=== PATIENT | female | born 1930 | race Caucasian/White ===

== ENCOUNTER 2018-11-13 10:57 | Inpatient (IN) | payer MEDICARE ==
--- NOTE | 2018-11-13 11:32 | RAD ---
Exam: Chest one view HISTORY:Chest pain Comparison: None FINDINGS: Lungs: No masses or consolidation. Left cardiac pacing device is in place, from subclavian approach. Cardiac silhouette: Normal size Pulmonary vessels: Normal Pleural Spaces: Clear Pneumothorax: None Osseous abnormalities: None of acuity. IMPRESSION: No focal consolidation.
[2018-11-13] MEDS ORDERED: Nitroglycerin 2% Ointment 1 INCH/1 GM Packet ONE (11:45)
[2018-11-13] MEDS ORDERED: Aspirin Chewable 81 MG TAB ONE (11:45)
[2018-11-13 11:54] LABS: #Basophils 0.1 thou/uL (0.0-0.2); #Lymphocytes 1.3 thou/uL (1.20-3.40); #Monocytes 0.6 thou/uL (0.11-0.59); #Neutrophils 6.3 thou/uL (1.40-6.50); %Basophils 0.8 % (0.0-1.0); %Eosinophils 0.3 % (0.0-10.0); %Lymphocytes 15.7 % (21.0-51.0); %Monocytes 6.9 % (0.0-10.0); %Neutrophils 76.3 % (42.0-75.0); Hemoglobin 17.7 g/dL (12.0-16.0); Mean Corpuscular Volume 91.1 fL (78.0-98.0); Mean Platelet Volume 7.4 fL (7.4-10.4); Platelet Count 163 thou/uL (130-400); RBC Distribution Width 12.1 % (11.5-14.5); Red Blood Cell (RBC) Count 5.73 mill/uL (4.20-5.40); White Blood Cell (WBC) Count 8.3 thou/uL (4.8-10.8)
[2018-11-13 12:05] LABS: ALT (SGPT) 21 U/L (8-55); AST (SGOT) 20 U/L (5-34); Alkaline Phosphatase 82 U/L (40-150); Anion Gap 22 mmol/L (10-20); BUN (Urea Nitrogen) 42 mg/dL (9.8-20.1); Bilirubin, Total 1.4 mg/dL (0.2-1.2); CK (CPK) 43 U/L (29-168); Calc. Creatinine Clearance 0 mL/min (70-130); Calcium 9.5 mg/dL (7.8-10.44); Carbon Dioxide 22 mmol/L (23-31); Chloride 96 mmol/L (98-107); Estimated GFR-MDRD 31; Globulin 3.3 g/dL (2.4-3.5); Glucose 405 mg/dL (83-110); Lipase 18 U/L (8-78); Protein, Total 7.3 g/dL (6.0-8.3); Sodium 136 mmol/L (136-145)
[2018-11-13 12:24] LABS: CKMB 2.8 ng/mL (0-6.6)
[2018-11-13] MEDS ORDERED: Insulin Regular 300 UNITS/3 ML VIAL ONE (12:37)
[2018-11-13 15:40] VITALS: BMI 21.7
[2018-11-13] MEDS ORDERED: Dextrose 5% in Water 1,000 ML IV PRN (16:10)
[2018-11-13] MEDS ORDERED: Dextrose 50% Abboject 50 ML SYRINGE SLOW IVP PRN (16:10)
[2018-11-13] MEDS ORDERED: Ondansetron ODT 4 MG TAB PO PRN (16:11)
[2018-11-13] MEDS ORDERED: Labetalol HCl 100 MG/20 ML VIAL SLOW IVP PRN (16:11)
[2018-11-13] MEDS ORDERED: diphenhydrAMINE 25 MG CAP PO PRN (16:11)
[2018-11-13] MEDS ORDERED: Acetaminophen 500 MG TAB PO PRN (16:11)
[2018-11-13] MEDS ORDERED: Ondansetron PF 4 MG/2 ML Vial IVP PRN (16:11)
[2018-11-13] MEDS ORDERED: hydrALAZINE 20 MG/ML VIAL SLOW IVP PRN (16:11)
[2018-11-13] MEDS ORDERED: Sodium Chloride 0.9% 1,000 ML IV SCH (16:15)
[2018-11-13 17:01] LABS: Troponin I 0.026 ng/mL (< 0.028)
--- NOTE | 2018-11-13 17:50 | HP ---
PRIMARY CARE PHYSICIAN: Dr. Arthur Braxton. CHIEF COMPLAINT: Chest pain, nausea, and vomiting. HISTORY OF PRESENT ILLNESS: Ms. Joseph is a pleasantly demented 88-year-old female with past medical history significant for type 2 diabetes mellitus, hypertension, paroxysmal atrial fibrillation, and history of dual-chamber pacemaker implantation, who presented with the above complaints. The patient can provide no history, and her son is no longer at the bedside, so information is obtained from medical records and staff. According to records, the patient has had some nausea and vomiting for the past couple of days. Today, she described some chest discomfort and pressure along with her nausea and vomiting. Her son brought her to the emergency department for further workup and treatment. On arrival, workup has included an EKG, which showed sinus rhythm along with some ST depression noted in leads I and aVL consistent with lateral ischemia. Her troponin was indeterminate at 0.034. She was fairly hypertensive when she arrived to the emergency department with a blood pressure of 199/110. She received aspirin as well as nitroglycerin paste and her blood pressure has trended down. Her second troponin was 0.026. At the time of my interview, the patient has no complaints. She is resting comfortably. She states that she feels much better than yesterday. The patient has been seen by Dr. Piedra in the past. She has no history of coronary artery disease, and no recent stress test per review of records. REVIEW OF SYSTEMS: A 12-point review of systems was performed. The patient denies any dysuria. She denies any blood in her urine or stool. She denies any fever or chills. She does report occasional dizzy spells along with frequent falling. She does try to use a cane. She states that she does not like to take medications and has not been taking her prescriptions as prescribed. PAST MEDICAL HISTORY: 1. Paroxysmal atrial fibrillation, CHADS at least 5. 2. The patient with dual-chamber pacemaker. 3. Type 2 diabetes mellitus. 4. Hyperlipidemia. 5. Advanced dementia. 6. Diabetic neuropathy. PAST SURGICAL HISTORY: Hysterectomy, dual-chamber pacemaker. SOCIAL HISTORY: The patient denies any alcohol use. No smoking history or illicit drug use. She lives with her son, Santy Joseph, who I have tried to reach, although phone number is not correct in our system. FAMILY HISTORY: Noncontributory. ALLERGIES: PENICILLINS, IODINE. HOME MEDICATIONS: The patient states that she has not taken any home medications recently. Notes obtained from Dr. Piedra's office revealed that her previous list of medications that were listed in October of 2017 were as follows: 1. Toviaz 4 mg tablet extended release one tablet daily. 2. Atorvastatin 40 mg q.h.s. 3. Gabapentin 300 mg tablet one capsule orally four times daily. 4. Fenofibrate 54 mg tablet one tablet daily. 5. Aspirin 81 mg daily. 6. Janumet XR mg one tablet daily. 7. Myrbetriq 25 mg extended release tablet one tablet daily. 8. Spironolactone 25 mg half tablet orally daily. 9. Ramipril 10 mg capsule daily. 10. Multaq 400 mg one tablet p.o. b.i.d. As mentioned, the patient is currently not taking any medications. PHYSICAL EXAMINATION: VITAL SIGNS: Blood pressure 166/99, pulse is 86, respirations 18, O2 saturation is 93% on room air. GENERAL: This patient is an elderly female, resting comfortably in bed. HEENT: Head is atraumatic and normocephalic. Mucous membranes are moist. NECK: Trachea is midline. No carotid bruits. No JVD. CV: S1 and S2. Regular rate and rhythm. No appreciable murmurs, rubs, or gallops. LUNGS: Regular respiratory rate and pattern. Overall, clear to auscultation bilaterally. ABDOMEN: Soft. Positive bowel sounds. EXTREMITIES: No edema. Warm, well perfused. NEUROLOGIC: Cranial nerves 2 through 12 are grossly intact. The patient is nonfocal. PSYCHIATRIC: The patient has a pleasant demeanor. She is alert and oriented to person and place, but cannot provide any significant history or remember having chest pain today. LABORATORY DATA: White blood cell count 8.3, hemoglobin 17.7, hematocrit 52.2, platelet count is 163. Sodium 136, potassium 4.0, BUN is 42, creatinine 1.58, glucose is 345, AST is 20, ALT is 21, alkaline phosphatase is 82. Troponin 0.034 and 0.026 respectively. Lipase is 18. ASSESSMENT: 1. Chest pain with associated nausea and vomiting, acute coronary syndrome ruled out. 2. Accelerated hypertension. 3. Indeterminate troponin in the setting of above. 4. Acute kidney injury, secondary to mild dehydration. 5. Noncompliance with medical treatment. 6. Uncontrolled type 2 diabetes mellitus. 7. Hyperlipidemia. 8. Advanced dementia. 9. Frequent falls. 10. patient with dual-chamber cardiac pacemaker in situ 11. Paroxysmal atrial fibrillation, currently in sinus rhythm/paced rhythm, CHADS-VASc of at least 5, likely not a candidate for anticoagulation due to frequent falls. PLAN: At this time, we will reinstate some of the patient's medications including daily aspirin as well as statin giving her diabetic status. We will provide sliding scale insulin for now. We will reinstate metformin after the patient's kidney function improves along with her GI symptoms. The patient has multiple risk factors and we will go ahead and further risk stratify this patient with nuclear stress test to be performed tomorrow. We will also interrogate her pacemaker as well. We will provide IV fluid resuscitation and continue to monitor her kidney function and electrolytes. Physical Therapy consult in the morning. Further recommendations based on findings of noninvasive testing and hospital course. GI and DVT prophylaxis. Job ID: [id number] MTDD
[2018-11-13] MEDS: Carvedilol 3.125 MG TAB PO SCH (18:10)
[2018-11-13] MEDS: Sodium Chloride 0.9% 1,000 ML IV SCH (18:11)
[2018-11-13 19:54] LABS: Troponin I 0.025 ng/mL (< 0.028)
[2018-11-13] MEDS: Enoxaparin Sodium 30 MG/0.3 ML SYRINGE SC SCH (20:39)
[2018-11-13] MEDS: Atorvastatin Calcium 20 MG TAB PO SCH (20:39)
[2018-11-13] MEDS: HumaLOG 300 UNITS/3 ML VIAL SC PRN (21:38)
[2018-11-14] MEDS: Sodium Chloride 0.9% 1,000 ML IV SCH ×4 (00:55→18:18)
[2018-11-14 04:42] LABS: #Basophils 0.1 thou/uL (0.0-0.2); #Eosinphils 0.1 thou/uL (0.0-0.7); #Lymphocytes 2.9 thou/uL (1.20-3.40); #Monocytes 0.7 thou/uL (0.11-0.59); #Neutrophils 4.7 thou/uL (1.40-6.50); %Basophils 1.1 % (0.0-1.0); %Eosinophils 1.1 % (0.0-10.0); %Monocytes 8.4 % (0.0-10.0); %Neutrophils 55.5 % (42.0-75.0); Hemoglobin 14.5 g/dL (12.0-16.0); Mean Corpuscular HGB CONC 34.8 g/dL (32.0-36.0); Mean Corpuscular Hemoglobin 32.1 pg (27.0-31.0); Mean Corpuscular Volume 92.1 fL (78.0-98.0); Mean Platelet Volume 7.5 fL (7.4-10.4); Platelet Count 147 thou/uL (130-400); RBC Distribution Width 11.6 % (11.5-14.5); Red Blood Cell (RBC) Count 4.52 mill/uL (4.20-5.40); White Blood Cell (WBC) Count 8.4 thou/uL (4.8-10.8)
[2018-11-14 04:54] LABS: Anion Gap 11 mmol/L (10-20); BUN (Urea Nitrogen) 37 mg/dL (9.8-20.1); Calc. Creatinine Clearance 30 mL/min (70-130); Calcium 8.4 mg/dL (7.8-10.44); Carbon Dioxide 26 mmol/L (23-31); Cardiac Risk 5.7 (Less than 4.5); Chloride 100 mmol/L (98-107); Cholesterol 166 mg/dl (< 200 Desired); Estimated GFR-MDRD 49; Glucose 174 mg/dL (83-110); HDL Cholesterol 29 mg/dL (>60 Neg Risk); LDL Cholesterol, Calculated 80 mg/dL; Potassium 3.2 mmol/L (3.5-5.1); Sodium 134 mmol/L (136-145); Triglycerides 287 mg/dL (Less than 150)
[2018-11-14 07:24] LABS: Bacteria/HPF 4+ HPF (None Seen); Bilirubin Negative (Negative); Blood, Urine Trace (Negative); Clarity Turbid (Clear); Glucose, Urine (Dipstick) 200 mg/dL (Negative); Leukocyte 500 Leu/uL (Negative); Nitrite 2+ (Negative); Protein, Urine (Dipstick) 20 mg/dL (Neg-Trace); Transitional Epithelial 0-3 HPF (None Seen); Urobilinogen Normal mg/dL (Less than 2); WBC/HPF Greater than 50 HPF (0-3)
[2018-11-14] MEDS ORDERED: Potassium Chloride 40 MEQ in Sodium Chloride 0.9% 250 ML 250 ML IVPB SCH (08:30)
[2018-11-14] MEDS: Carvedilol 3.125 MG TAB PO SCH ×3 (09:17→17:58)
[2018-11-14] MEDS: Aspirin 81 mg Enteric Coated Tablet PO SCH ×2 (09:17→12:08)
--- NOTE | 2018-11-14 11:52 | NM ---
CARDIAC SPECT: CLINICAL HISTORY: 88-year-old female with chest pain, hypertension, diabetes, dyslipidemia, and atrial fibrillation. TECHNIQUE: A myocardial perfusion scan was performed using the single isotope one day protocol with technetium-9 9m sestamibi. 10 mCi were injected intravenously for the rest exam followed by 29 mCi for the stress exam. Pharmacologic stress with Adenosine was monitored and interpreted by Etelvina Duque NP. FINDINGS: Homogeneous tracer distribution is seen in the myocardial segments on stress and rest images without fixed or reversible defects. GATED SPECT LVEF: 84%. WALL MOTION EXAM: Normal. IMPRESSION: Normal myocardial perfusion scan. POS: OFF
[2018-11-14] MEDS ORDERED: ADENOSINE 60 MG/20 ML VIAL ONE (16:55)
--- NOTE | 2018-11-14 17:20 | PDOC.HOSPP ---
- Subjective Encounter Date: 11/14/18 Encounter Time: 17:18 Subjective: Patient reports no complaints except urinary frequency. Per son she has had long standing issues with UTIs and has also recently stopped taking all of her medications. She refuses to take them or holds them in her mouth. She does have underlying dementia. Per son, he agrees placement would be beneficial as recommended by PT. She has had several falls. Often falls asleep on the commode though she is able to walk to the toilet independently. Per patient she states she feels she has been on medications for too long and takes too many. She is slightly confused but able to answer some questions appropriately. No complaints at present. - Objective Vital Signs & Weight: Vital Signs (12 hours) Temp Pulse Pulse Pulse Resp BP BP 11/14/18 15:41 97.8 F 74 17 11/14/18 15:10 77 71 179/84 H 181/79 H 11/14/18 11:30 97.3 F L 77 16 BP Pulse Ox 11/14/18 15:41 161/73 H 97 11/14/18 15:10 11/14/18 11:30 197/92 H 96 Weight Weight 111 lb I&O: 11/13/18 11/14/18 11/15/18 06:59 06:59 06:59 Intake Total 1740 Output Total 150 Balance 1590 Result Diagrams: 11/14/18 04:16 11/14/18 04:16 Additional Labs: Accuchecks 11/14/18 11/13/18 11:35 21:09 POC Glucose 272 H 300 H Hospitalist ROS - Review of Systems Constitutional: denies: fever, chills, sweats, weakness, malaise, other Eyes: denies: pain, vision change, conjunctivae inflammation, eyelid inflammation, redness, other ENT: denies: ear pain, ear discharge, nose pain, nose discharge, nose congestion , mouth pain, mouth swelling, throat pain, throat swelling, other Respiratory: denies: cough, dry, shortness of breath, hemoptysis, SOB with excertion, pleuritic pain, sputum, wheezing, other Cardiovascular: denies: chest pain, palpitations, orthopnea, paroxysmal noc. dyspnea, edema, light headedness, other Gastrointestinal: denies: nausea, vomitting, abdominal pain, diarrhea, constipation, melena, hematochezia, other Genitourinary: reports: frequency. denies: dysuria, incontinence, hematuria, retention, other Musculoskeletal: denies: neck pain, shoulder pain, arm pain, back pain, hand pain, leg pain, foot pain, other Skin: denies: rash, lesions, daphne, bruising, other Neurological: denies: weakness, numbness, incoordination, change in speech, confusion, seizures, other - Medication Medications: Active Medications Generic Name Dose Route Start Last Admin Trade Name Freq PRN Reason Stop Dose Admin Aspirin 81 mg 11/14/18 09:00 11/14/18 12:08 Ecotrin PO 81 mg DAILY LEYDA Administration Atorvastatin Calcium 20 mg 11/13/18 21:00 11/13/18 20:39 Lipitor PO 20 mg HS LEYDA Administration Carvedilol 3.125 mg 11/13/18 17:00 11/14/18 12:08 Coreg PO 3.125 mg BID-WM LEYDA Administration Enoxaparin Sodium 30 mg 11/13/18 21:00 11/13/18 20:39 Lovenox SC 30 mg 2100 LEYDA Administration Sodium Chloride 1,000 mls @ 125 mls/hr 11/13/18 16:15 11/14/18 16:55 Normal Saline 0.9% IV Not Given .Q8H LEYDA Insulin Human Lispro 0 units 11/13/18 16:10 11/13/18 21:38 Humalog SC 3 units .BEDTIME SLIDING SC PRN Administration Bedtime Correctional Scale - Exam General Appearance: NAD Eye: PERRL, anicteric sclera ENT: normocephalic atraumatic, no oropharyngeal lesions, moist mucosa Neck: supple, symmetric, no lymphadenopathy Heart: RRR Respiratory: CTAB, no wheezes, no rales, no ronchi, normal chest expansion, no tachypnea Gastrointestinal: soft, non-tender, non-distended, normal bowel sounds Extremities: no cyanosis, no clubbing, no edema Skin: normal turgor, no lesions, no rashes Neurological: CN's grossly intact, normal sensation to touch Musculoskeletal: generalized weakness Psychiatric: normal affect, oriented to person Hosp A/P (1) Chest pain Code(s): R07.9 - CHEST PAIN, UNSPECIFIED Status: Resolved Plan: s/p stress test, normal without ischecmia and EF of 84%. (2) UTI (urinary tract infection) Status: Acute Plan: Start Rocephin, urine cultures pending. Previous cultures positive for e. coli and klebsiella. (3) Nausea & vomiting Code(s): R11.2 - NAUSEA WITH VOMITING, UNSPECIFIED Status: Resolved (4) Generalized weakness Code(s): R53.1 - WEAKNESS Status: Acute Plan: Seen by PT, recommended rehab vs. SNU Consult for [facility] and rehab screening placed. Potentially worse due to underlying UTI. (5) Dementia Code(s): F03.90 - UNSPECIFIED DEMENTIA WITHOUT BEHAVIORAL DISTURBANCE Status: Chronic Plan: Per son she is at baseline. (6) Diabetes mellitus Code(s): E11.9 - TYPE 2 DIABETES MELLITUS WITHOUT COMPLICATIONS Status: Chronic Plan: Resume home meds. Continue ISS and monitor glucose. (7) Hypertension Code(s): I10 - ESSENTIAL (PRIMARY) HYPERTENSION Status: Chronic Plan: Reduce IVF to 50 cc/hr Start amlodipine, has been off of lisinopril for several days. Monitor BP. (8) Hypokalemia Code(s): E87.6 - HYPOKALEMIA Status: Acute Plan: S/p replacement. Continue to monitor and replace as necessary. - Plan PT/OT, DVT proph w/SCDs Awaiting PM interrogation, to be done later today or tomorrow am. Cardiology consult if indicated (Dr. Piedra). Will add BNP and Mg+ to labs done today. Orthostatic BPs requested.
[2018-11-14] MEDS: cefTRIAXone\\ROCEPHIN 2 GM in Sodium Chloride 0.9% 100 ML IVPB SCH (17:58)
[2018-11-14] MEDS: Atorvastatin Calcium 20 MG TAB PO SCH (20:25)
[2018-11-14] MEDS: Enoxaparin Sodium 30 MG/0.3 ML SYRINGE SC SCH (20:25)
[2018-11-14] MEDS: Propafenone HCl 150 MG TAB PO SCH (20:27)
[2018-11-14] MEDS: HumaLOG 300 UNITS/3 ML VIAL SC PRN (21:29)
[2018-11-15 04:54] LABS: #Basophils 0.1 thou/uL (0.0-0.2); #Eosinphils 0.1 thou/uL (0.0-0.7); #Lymphocytes 2.1 thou/uL (1.20-3.40); #Monocytes 0.6 thou/uL (0.11-0.59); %Basophils 0.8 % (0.0-1.0); %Eosinophils 1.4 % (0.0-10.0); %Lymphocytes 30.4 % (21.0-51.0); %Monocytes 8.7 % (0.0-10.0); %Neutrophils 58.7 % (42.0-75.0); Hemoglobin 14.3 g/dL (12.0-16.0); Mean Corpuscular HGB CONC 33.8 g/dL (32.0-36.0); Mean Corpuscular Volume 91.7 fL (78.0-98.0); Mean Platelet Volume 7.9 fL (7.4-10.4); Platelet Count 132 thou/uL (130-400); RBC Distribution Width 11.6 % (11.5-14.5); Red Blood Cell (RBC) Count 4.61 mill/uL (4.20-5.40); White Blood Cell (WBC) Count 6.8 thou/uL (4.8-10.8)
[2018-11-15 05:14] LABS: Anion Gap 13 mmol/L (10-20); BUN (Urea Nitrogen) 22 mg/dL (9.8-20.1); Calc. Creatinine Clearance 35 mL/min (70-130); Calcium 8.2 mg/dL (7.8-10.44); Carbon Dioxide 24 mmol/L (23-31); Chloride 104 mmol/L (98-107); Estimated GFR-MDRD 58; Glucose 179 mg/dL (83-110); Magnesium 1.5 mg/dL (1.6-2.6); Potassium 3.4 mmol/L (3.5-5.1); Sodium 138 mmol/L (136-145)
[2018-11-15] MEDS: Carvedilol 3.125 MG TAB PO SCH (09:13)
[2018-11-15] MEDS: Propafenone HCl 150 MG TAB PO SCH (09:13)
[2018-11-15] MEDS: Aspirin 81 mg Enteric Coated Tablet PO SCH (09:13)
[2018-11-15] MEDS: Fenofibrate 48 MG TAB PO SCH (09:13)
[2018-11-15] MEDS: Amlodipine 5 MG TAB PO SCH (09:13)
[2018-11-15] MEDS: Glimepiride 1 MG TAB PO SCH (09:42)
[2018-11-15] MEDS: HumaLOG 300 UNITS/3 ML VIAL SC PRN (12:03)
--- NOTE | 2018-11-15 14:30 | CON ---
DATE OF CONSULTATION: 11/15/2018 REASON FOR CONSULTATION: Atrial arrhythmias. PRIMARY REGISTERED NURSE CARDIAC: Kenneth Piedra MD HISTORY OF PRESENT ILLNESS: Ms. Joseph is a pleasant 88-year-old white female, who comes to the hospital for nausea and vomiting. She started having this a few days back. This is associated with chest pain, so she was admitted for this. She had a pacemaker placed about 12 years ago. She had a stress test yesterday, which was normal. No ischemia with normal LV function. She has a history of paroxysmal atrial fibrillation and she was started on Multaq recently. No anticoagulation was given as she is a high fall risk as she is reluctant to use a walker. She was started on Multaq on her last visit a year ago as she had a high burden of atrial fibrillation. Interrogation during this hospital stay shows high burden of atrial arrhythmias including atrial fibrillation and atrial tachycardia. Sustain 30 to 40 seconds worse at a time minimally symptomatic, although she is somewhat demented and cannot tell me with much details if she is feeling this or not. PAST MEDICAL HISTORY: 1. Paroxysmal atrial fibrillation. 2. Dementia. 3. Sick sinus syndrome, status post dual-chamber pacemaker. 4. Type 2 diabetes. 5. Hyperlipidemia. 6. Diabetic nephropathy. PAST SURGICAL HISTORY: 1. Hysterectomy. 2. Pacemaker placement as above. SOCIAL HISTORY: No alcohol, tobacco, or drugs. Lives with her son. FAMILY HISTORY: Noncontributory. OUTPATIENT MEDICATIONS: Include: 1. Toviaz 4 mg a day. 2. Atorvastatin 40 mg at bedtime. 3. Gabapentin. 4. Fenofibrate. 5. Aspirin 81 a day. 6. Janumet. 7. Myrbetriq. 8. Spironolactone 25 mg half tablet a day. 9. Ramipril 10 mg a day. 10. Multaq 400 mg b.i.d. ALLERGIES: PENICILLINS AND IODINE. REVIEW OF SYSTEMS: A 12-point review of systems was done and was all negative unless stated in the history of present illness. PHYSICAL EXAMINATION: VITAL SIGNS: Temperature 97.5, pulse 60, respiratory rate 16, sat 97% on room air, and blood pressure 141/66. GENERAL: Awake, alert, and oriented to person and place only, in no distress. HEENT: Normocephalic and atraumatic. NECK: Supple. LUNGS: Clear. CARDIOVASCULAR: S1 and S2. No S3 or S4. No murmurs. There is a grade 2/6 systolic murmur at the right upper sternal border. ABDOMEN: Soft. Positive bowel sounds. EXTREMITIES: No edema. SKIN: Warm and dry. LABORATORY DATA: Laboratory work was reviewed. CBC is unremarkable. Chemistry with a potassium of 3.4, otherwise unremarkable. UA with 2+ nitrites, 7 to 10 red cells, greater than 50 white cells, and 4+ bacteria. ASSESSMENT: 1. Urinary tract infection. 2. Atrial tachycardia. 3. Paroxysmal atrial fibrillation. PLAN: 1. Ms. Joseph is not interested in any invasive interventions. She only wants to take medicines for whatever condition she has. Not interested in any ablations of any kind. At this time, we would only restart the Multaq at 400 mg b.i.d. We will add a low-dose beta livan and up titrate depending on her blood pressure. 2. Her UTI is probably the reason for her nausea and vomiting and her increased rate of atrial arrhythmias recently. Thank you for letting us to participate in the care of your patient. Dr. Piedra, her primary home staging specialist will follow up in the morning. Job ID: [id number] MTDD
[2018-11-15] MEDS: Sodium Chloride 0.9% 1,000 ML IV SCH (15:15)
--- NOTE | 2018-11-15 15:54 | PDOC.HOSPP ---
- Subjective Subjective: She feels ok. She would really like to go home. Long discussion with the patient and her son who is at the bedside. The patient is not taking her medications at home. She has difficulty swallowing pills of any size. She will essentially refuse to take some and when she does, she will space them out throughout the day, making BID meds impossible. Son has tried to push her to take the meds and that has caused some stress between them. She points out that she is 88 years old. PCP has tried to minimize her meds. Son has tried to crush them and put them in food, but she holds it in her mouth. - Objective Vital Signs & Weight: Vital Signs (12 hours) Temp Pulse Pulse Pulse Resp BP BP 11/15/18 11:27 60 18 11/15/18 11:20 60 60 148/71 H 11/15/18 08:49 64 68 196/89 H 11/15/18 07:43 97.5 F L 60 16 11/15/18 04:16 97.8 F 63 16 151/75 H BP BP Pulse Ox 11/15/18 11:27 141/66 H 11/15/18 11:20 141/66 H 11/15/18 08:49 197/88 H 11/15/18 07:43 183/81 H 97 11/15/18 04:16 97 Weight Weight 111 lb I&O: 11/14/18 11/15/18 11/16/18 06:59 06:59 06:59 Intake Total 1740 2310 830 Output Total 150 1300 Balance 1590 1010 830 Result Diagrams: 11/15/18 04:15 11/15/18 04:15 Additional Labs: Accuchecks 11/15/18 11/14/18 11/14/18 10:49 21:11 17:13 POC Glucose 354 H 270 H 250 H Hospitalist ROS - Medication Medications: Active Medications Generic Name Dose Route Start Last Admin Trade Name Freq PRN Reason Stop Dose Admin Amlodipine Besylate 5 mg 11/15/18 09:00 11/15/18 09:13 Norvasc PO 5 mg DAILY LEYDA Administration Aspirin 81 mg 11/15/18 09:00 11/15/18 09:13 Ecotrin PO 81 mg DAILY LEYDA Administration Atorvastatin Calcium 20 mg 11/13/18 21:00 11/14/18 20:25 Lipitor PO 20 mg HS LEYDA Administration Enoxaparin Sodium 30 mg 11/13/18 21:00 11/14/18 20:25 Lovenox SC 30 mg 2100 LEYDA Administration Fenofibrate 48 mg 11/15/18 09:00 11/15/18 09:13 Tricor PO 48 mg DAILY LEYDA Administration Glimepiride 1 mg 11/15/18 08:00 11/15/18 09:42 Amaryl PO 1 mg QAM-WM LEYDA Administration Ceftriaxone Sodium 2 gm/ 100 mls @ 200 mls/hr 11/14/18 18:00 11/14/18 17:58 Sodium Chloride IVPB 100 mls Q24HR LEYDA Administration Insulin Human Lispro 0 units 11/13/18 16:10 11/15/18 12:03 Humalog SC 6 unit .MILD SLIDING SCALE PRN Administration Mild Correctional Scale Insulin Human Lispro 0 units 11/13/18 16:10 11/14/18 21:29 Humalog SC 3 units .BEDTIME SLIDING SC PRN Administration Bedtime Correctional Scale - Exam General Appearance: NAD, awake alert Neck: supple, symmetric, no JVD, no thyromegaly, no lymphadenopathy, no carotid bruit Heart: RRR, no murmur, no gallops, no rubs, normal peripheral pulses Respiratory: CTAB, no wheezes, no rales, no ronchi, normal chest expansion, no tachypnea, normal percussion Gastrointestinal: soft, non-tender, non-distended, normal bowel sounds, no palpable masses, no hepatomegaly, no splenomegaly, no bruit Extremities: no cyanosis, no clubbing, no edema Skin: normal turgor, no lesions, no rashes Neurological: CN's grossly intact Psychiatric - other findings: Mildly confused Hosp A/P (1) Atrial fibrillation Code(s): I48.91 - UNSPECIFIED ATRIAL FIBRILLATION Status: Acute (2) Generalized weakness Code(s): R53.1 - WEAKNESS Status: Acute (3) UTI (urinary tract infection) Status: Acute (4) Dementia Code(s): F03.90 - UNSPECIFIED DEMENTIA WITHOUT BEHAVIORAL DISTURBANCE Status: Chronic (5) Diabetes mellitus Code(s): E11.9 - TYPE 2 DIABETES MELLITUS WITHOUT COMPLICATIONS Status: Chronic (6) Hypertension Code(s): I10 - ESSENTIAL (PRIMARY) HYPERTENSION Status: Chronic (7) Chest pain Code(s): R07.9 - CHEST PAIN, UNSPECIFIED Status: Resolved (8) Nausea & vomiting Code(s): R11.2 - NAUSEA WITH VOMITING, UNSPECIFIED Status: Resolved - Plan High burden of afib. Dr. Piedra to see in am. Dr. Kovacs has added multaq 400 and beta livan. Obviously problematic that she is not taking any po meds at home. Not sure she will take these either. Consult [facility] to ensure there is no true swallowing dysfunction. Need to try to consolidate her meds, jettison everything non-essential ( fenofibrate) and try to get as much as possible in q day regimen. Will consult Palliative Care as there seems to be some caregiver stress and a patient who is comfortable with not taking treatment. No urine culture visible now. Continue Rocephin for possible UTI.
[2018-11-15] MEDS: Carvedilol 6.25 MG TAB PO SCH (16:55)
[2018-11-15] MEDS: metFORMIN 500 MG TAB PO SCH (16:55)
[2018-11-15] MEDS ORDERED: Dronedarone HCl 400 MG TAB PO SCH ×2 (17:00→17:30)
[2018-11-15] MEDS: cefTRIAXone\\ROCEPHIN 2 GM in Sodium Chloride 0.9% 100 ML IVPB SCH (17:01)
[2018-11-15] MEDS: Atorvastatin Calcium 20 MG TAB PO SCH (20:23)
[2018-11-15] MEDS: Enoxaparin Sodium 30 MG/0.3 ML SYRINGE SC SCH (20:23)
[2018-11-16 06:42] LABS: #Eosinphils 0.1 thou/uL (0.0-0.7); #Lymphocytes 2.6 thou/uL (1.20-3.40); #Monocytes 0.6 thou/uL (0.11-0.59); #Neutrophils 3.9 thou/uL (1.40-6.50); %Basophils 0.4 % (0.0-1.0); %Lymphocytes 35.3 % (21.0-51.0); %Monocytes 8.5 % (0.0-10.0); %Neutrophils 53.8 % (42.0-75.0); Hemoglobin 14.2 g/dL (12.0-16.0); Mean Corpuscular HGB CONC 34.5 g/dL (32.0-36.0); Mean Corpuscular Hemoglobin 31.4 pg (27.0-31.0); Mean Platelet Volume 8.3 fL (7.4-10.4); Platelet Count 129 thou/uL (130-400); RBC Distribution Width 11.7 % (11.5-14.5); Red Blood Cell (RBC) Count 4.53 mill/uL (4.20-5.40); White Blood Cell (WBC) Count 7.2 thou/uL (4.8-10.8)
[2018-11-16 07:05] LABS: Anion Gap 15 mmol/L (10-20); BUN (Urea Nitrogen) 16 mg/dL (9.8-20.1); Calc. Creatinine Clearance 37 mL/min (70-130); Calcium 8.2 mg/dL (7.8-10.44); Carbon Dioxide 18 mmol/L (23-31); Chloride 105 mmol/L (98-107); Estimated GFR-MDRD 62; Glucose 161 mg/dL (83-110); Potassium 3.5 mmol/L (3.5-5.1); Sodium 134 mmol/L (136-145)
[2018-11-16] MEDS ORDERED: Dronedarone HCl 400 MG TAB PO SCH (08:00)
[2018-11-16] MEDS ORDERED: Magnesium 2 GM/50 ML 2 GM in Premix Bag 1 BAG IVPB SCH (09:15)
[2018-11-16] MEDS ORDERED: Potassium Chloride 20 MEQ TAB PO SCH (09:15)
[2018-11-16] MEDS: Amiodarone 200 MG TAB PO SCH ×2 (09:22→21:41)
[2018-11-16] MEDS: Atorvastatin Calcium 40 MG TAB PO SCH (09:22)
[2018-11-16] MEDS: Fenofibrate 48 MG TAB PO SCH (09:22)
[2018-11-16] MEDS: Aspirin 81 mg Enteric Coated Tablet PO SCH ×2 (09:23→09:26)
[2018-11-16] MEDS: Glimepiride 1 MG TAB PO SCH (09:23)
[2018-11-16] MEDS ORDERED: Aspirin Chewable 81 MG TAB PO SCH (11:15)
[2018-11-16] MEDS: Carvedilol 6.25 MG TAB PO SCH (11:15)
[2018-11-16] MEDS: Amlodipine 5 MG TAB PO SCH (11:15)
[2018-11-16] MEDS: HumaLOG 300 UNITS/3 ML VIAL SC PRN (12:45)
--- NOTE | 2018-11-16 14:30 | PDOC.PALCO ---
Palliative Care Consult - Consult Details Requesting Physician: Dr West Reason for Consult: goals of care, advance directives assistance Family Members Present: Son Santy - Pertinent HPI 88 year old female who resides with her son at a private residence. Patient is non compliant with her medications and at home presented iwth chest pain, nausea , and vomiting. Nausea and vomiting were intermittent x 2-3 days and then the day of presentation to the emergency room she also had an episode of chest pain that was not relieved. Seen and evaluated in the emergency room and admitted for further evaluation related to uncontrolled diabetes, hypertension, physical deconditioning. Palliative Care consult for assistance with goals of care and family support. - Pertinent PMH Paroxysmal atrial fib, hypertension, hyperlipidemia, diabetes mellitus, dementia , diabetic neuropathy, - Social History Smoking Status: Never smoker Smoking: no tobacco exposure Alcohol Use: none Drug Use History: none Living Situation: with family/parents (Lives with her son Santy) - Medications MAR Reviewed: Yes - Allergies Allergies/Adverse Reactions: Allergies Allergy/AdvReac Type Severity Reaction Status Date / Time iodine Allergy Verified 11/13/18 16:32 Penicillins Allergy Verified 11/13/18 15:14 - Subjective eating breakfast with son at bedside, Dr Brennan also present for initial aspect of conversation. Discussion in relation to patient non compliance with medications at home. Patient states at times she just does not want to take her medications. Denies any complaints at the time, states "I want to go home". ROS: 10 point review negative however incontinent of bowel and bladder. - Objective Vital Signs: Vital Signs - Most Recent Temp Pulse Resp BP Pulse Ox 97.6 F 60 18 142/67 H 98 11/16/18 12:49 11/16/18 12:49 11/16/18 12:49 11/16/18 12:49 11/16/18 12:49 - Physical Exam Constitutional: NAD HEENT: moist MMs, EOMI Respiratory: no wheezing, unlabored breathing Cardiovascular: RRR, no significant murmur Gastrointestinal: soft, non-tender, positive bowel sounds Musculoskeletal: no edema, pulses present Deviation from normal: muscle wasting Neurological: moves all 4 limbs Deviation from normal: slight poor memory recall, Skin: no rash - Problem List (1) Palliative care encounter Code(s): Z51.5 - ENCOUNTER FOR PALLIATIVE CARE Current Visit: Yes Status: Acute (2) Atrial fibrillation Code(s): I48.91 - UNSPECIFIED ATRIAL FIBRILLATION Current Visit: Yes Status : Acute (3) Generalized weakness Code(s): R53.1 - WEAKNESS Current Visit: Yes Status: Acute (4) Dementia Code(s): F03.90 - UNSPECIFIED DEMENTIA WITHOUT BEHAVIORAL DISTURBANCE Current Visit: Yes Status: Chronic - Plan/Recommendations Plan: Son is having an increase in difficulty in caring for his mother in the home setting. Discussed assisted living facilities, resource of [facility], as well as Hospice. Goal is to have patient at home and mitigate caregiver strain. Essential medications. Son and patient would like to visit with [facility] hospice to discuss option of Hospice care to manage symptoms and allow patient to remain at home and avoid hospitalizations. Communicated with Dr Brennan and Sheela Redd RNsupport architect as well as CM. *Choice letter completed for [facility], [facility] *Family to visit with Hospice and decide if this is the course of care/patient wants the freedom to decide if she wants to take her medications or not/and not return to hospital *Sheela Redd RNsupport architect to discuss DNAR and OOHDNAR as well as continue to support patient and family *Will also provide information on [place] [facility] for additional resources Palliative care will follow and assist the patient and primary caregiver to continue to define measures to meet the patients goal of remaining in her home paired with the independence in choice in medication adherence. [90] minutes spent on this encounter with >50% of the time in counseling and coordination of care. Thank you for this very appropriate consult.
--- NOTE | 2018-11-16 16:21 | PDOC.HOSPP ---
- Subjective Encounter Date: 11/16/18 Encounter Time: 09:15 Subjective: 88 y/o female with dementia,and multiple other medical conditions including paroxysmal atrial fib admitted with nausea and vomiting associated with chest pain. Found to have high burden of atrial fib on interrogation of pacemaker. Also found to have UTI. Patient has history of non compliance. Nausea and vomiting has subsided and he is back in sinus rhythm. No fever. - Objective Vital Signs & Weight: Vital Signs (12 hours) Temp Pulse Pulse Resp BP BP BP 11/16/18 14:26 11/16/18 12:49 97.6 F 60 18 142/67 H 11/16/18 11:15 60 156/77 H 11/16/18 09:46 64 159/76 H 11/16/18 08:30 97.5 F L 60 18 BP Pulse Ox 11/16/18 14:26 98 11/16/18 12:49 98 11/16/18 11:15 11/16/18 09:46 11/16/18 08:30 168/77 H 97 Weight Weight 111 lb I&O: 11/15/18 11/16/18 11/17/18 06:59 06:59 06:59 Intake Total 2310 1420 Output Total 1300 300 Balance 1010 1120 Result Diagrams: 11/16/18 05:47 11/16/18 05:47 Additional Labs: Accuchecks 11/16/18 11/16/18 11/15/18 11:20 05:14 16:58 POC Glucose 310 H 162 H 138 H Hospitalist ROS - Medication Medications: Active Medications Generic Name Dose Route Start Last Admin Trade Name Mike PRN Reason Stop Dose Admin Amiodarone HCl 400 mg 11/16/18 09:00 11/16/18 09:22 Cordarone PO 400 mg BID LEYDA Administration Atorvastatin Calcium 40 mg 11/16/18 09:00 11/16/18 09:22 Lipitor PO 40 mg QAM LEYDA Administration Enoxaparin Sodium 30 mg 11/13/18 21:00 11/15/18 20:23 Lovenox SC 30 mg 2100 LEYDA Administration Fenofibrate 48 mg 11/15/18 09:00 11/16/18 09:22 Tricor PO 48 mg DAILY LEYDA Administration Glimepiride 1 mg 11/15/18 08:00 11/16/18 09:23 Amaryl PO 1 mg QAM-WM LEYDA Administration Ceftriaxone Sodium 2 gm/ 100 mls @ 200 mls/hr 11/14/18 18:00 11/15/18 17:01 Sodium Chloride IVPB 100 mls Q24HR LEYDA Administration Insulin Human Lispro 0 units 11/13/18 16:10 11/16/18 12:45 Humalog SC 5 unit .MILD SLIDING SCALE PRN Administration Mild Correctional Scale Insulin Human Lispro 0 units 11/13/18 16:10 11/14/18 21:29 Humalog SC 3 units .BEDTIME SLIDING SC PRN Administration Bedtime Correctional Scale Metformin HCl 500 mg 11/15/18 17:00 11/15/18 16:55 Glucophage PO 500 mg QPM-WM LEYDA Administration Metoprolol Succinate 100 mg 11/16/18 09:00 11/16/18 09:23 Toprol Xl PO 100 mg DAILY LEYDA Administration - Exam General Appearance: awake alert Eye: anicteric sclera ENT: normocephalic atraumatic, moist mucosa Neck: supple Heart: RRR, murmur present Respiratory: no wheezes, no rales, no ronchi, normal chest expansion, no tachypnea Gastrointestinal: soft, non-tender, non-distended, normal bowel sounds Extremities: no cyanosis, no edema Neurological: CN's grossly intact, no focal deficits Psychiatric: normal affect, A&O x 3 Psychiatric - other findings: memeory lapses noted Hosp A/P (1) UTI (urinary tract infection) Status: Acute (2) Paroxysmal atrial fibrillation Code(s): I48.0 - PAROXYSMAL ATRIAL FIBRILLATION Status: Acute (3) Hypomagnesemia Code(s): E83.42 - HYPOMAGNESEMIA Status: Acute (4) Generalized weakness Code(s): R53.1 - WEAKNESS Status: Acute (5) Hypokalemia Code(s): E87.6 - HYPOKALEMIA Status: Acute (6) Dementia Code(s): F03.90 - UNSPECIFIED DEMENTIA WITHOUT BEHAVIORAL DISTURBANCE Status: Chronic (7) Diabetes mellitus Code(s): E11.9 - TYPE 2 DIABETES MELLITUS WITHOUT COMPLICATIONS Status: Chronic (8) Hypertension Code(s): I10 - ESSENTIAL (PRIMARY) HYPERTENSION Status: Chronic (9) Chest pain Code(s): R07.9 - CHEST PAIN, UNSPECIFIED Status: Resolved (10) Nausea & vomiting Code(s): R11.2 - NAUSEA WITH VOMITING, UNSPECIFIED Status: Resolved - Plan Replete serum potassium and magnesium Continue antibiotic for UTI Continue PT. Afib treatment as per cardiology. Now on amidarone. Not a candidate for chronic anticoagulation due to falls Discussed hospice care amongst other care options with patient and son at the bedside with palliative care personnel in attendance. They will like to purse hospice care. Will consult case mgt in this regard.
[2018-11-16] MEDS: metFORMIN 500 MG TAB PO SCH (17:53)
[2018-11-16] MEDS: cefTRIAXone\\ROCEPHIN 2 GM in Sodium Chloride 0.9% 100 ML IVPB SCH (17:53)
[2018-11-16] MEDS: Enoxaparin Sodium 30 MG/0.3 ML SYRINGE SC SCH (21:41)
[2018-11-17 05:20] LABS: Anion Gap 11 mmol/L (10-20); BUN (Urea Nitrogen) 16 mg/dL (9.8-20.1); Calc. Creatinine Clearance 39 mL/min (70-130); Calcium 8.4 mg/dL (7.8-10.44); Carbon Dioxide 25 mmol/L (23-31); Chloride 101 mmol/L (98-107); Estimated GFR-MDRD 61; Glucose 133 mg/dL (83-110); Magnesium 1.7 mg/dL (1.6-2.6); Sodium 133 mmol/L (136-145)
[2018-11-17] MEDS ORDERED: Aspirin Chewable 81 MG TAB PO SCH (09:00)
[2018-11-17] MEDS ORDERED: Ramipril 5 MG CAP PO SCH (09:00)
[2018-11-17] MEDS ORDERED: Magnesium Oxide 400 MG TAB PO SCH (09:00)
[2018-11-17] MEDS: Amiodarone 200 MG TAB PO SCH (09:33)
[2018-11-17] MEDS: Atorvastatin Calcium 40 MG TAB PO SCH (09:34)
[2018-11-17] MEDS: Fenofibrate 48 MG TAB PO SCH (09:34)
[2018-11-17] MEDS: Glimepiride 1 MG TAB PO SCH (09:35)
--- NOTE | 2018-11-17 09:53 | PDOC.EVN ---
Event Note - Event Note Event Note: DISCHARGED HOME WITH HOSPICE. DISCHARGE SUMMARY DICTATED. #[id number]
--- NOTE | 2018-11-17 10:31 | DIS ---
DATE OF ADMISSION: 11/13/2018 DATE OF DISCHARGE: 11/17/2018 PRIMARY CARE PHYSICIAN: Arthur Braxton, DO DISCHARGE DIAGNOSES: 1. Urinary tract infection. 2. Paroxysmal atrial fibrillation with rapid ventricular response. 3. Atypical chest pain. 4. Hypomagnesemia. 5. Hypokalemia. 6. Physical deconditioning. 7. Generalized weakness. 8. Type 2 diabetes mellitus. 9. Hypertension. 10. Atypical chest pain. 11. Nausea and vomiting. 12. Dementia. 13. Hyperlipidemia. 14. Acute kidney injury. 15. Sick sinus syndrome. 16. Status post dual-chamber pacemaker placement. CONSULTS: Cardiology and Palliative Care. HOSPITAL COURSE: An 88-year-old female with past medical history significant for dementia, sick sinus syndrome, status post pacemaker placement, noncompliance, type 2 diabetes, amongst others, who was admitted due to nausea and vomiting associated with chest pain. Evaluation with urinalysis was suggestive of urinary tract infection and the patient was started on antibiotics. Acute myocardial infarction was ruled out with serial troponin. But given her risk factors, the patient was further risk stratified with stress test, which however was negative. The patient was found to have atrial fibrillation in the hospital. Interrogation of the pacemaker showed high burden of atrial fibrillation, hence the patient was started on Multaq. Due to financial issues and inability of the relatives to provide, this was transitioned to amiodarone. The patient has not been on anticoagulation due to fall risk. With all this in mind and further the patient is noncompliant with medications, refusing to take her medications at times, following discussion with the patient and son, it was decided that it is in the patient's best interest to proceed with hospice care, so that she could be managed more like comfort care. The patient completed antibiotics for urinary tract infection and remained stable, tolerating oral intake and was subsequently discharged home with home hospice. She also received physical therapy for physical deconditioning and generalized weakness with improvement. PHYSICAL EXAMINATION: VITAL SIGNS: Temperature 98.5, pulse 60, respiratory rate 17, SpO2 of 98% on room air, and blood pressure is 132/83. GENERAL: Elderly female, in no distress. Afebrile. Anicteric. Acyanotic. HEENT: Normocephalic, atraumatic. Oral mucosa is moist. CARDIOVASCULAR: Regular rhythm and rate with normal heart sounds 1 and 2. RESPIRATORY: Good air entry bilaterally with few transmitted sounds. No obvious crackle or rhonchi or use of accessory muscles appreciated. GASTROINTESTINAL: Full, soft, nontender, and nondistended with normal bowel sounds. EXTREMITIES: Grossly normal looking, atraumatic with no edema or erythema. CENTRAL NERVOUS SYSTEM: Conscious and alert. Oriented to person and place at least. Cranial nerves II through XII are grossly intact. Memory lapse is noted. The patient moves all extremities. DISCHARGE DISPOSITION: Home with hospice. DISCHARGE CONDITION: Improved. DISCHARGE MEDICATIONS: Please see discharge med rec. TIME SPENT: This discharge took more than 30 minutes. Job ID: [id number]
[2018-11-17 12:06] VITALS: BP 152/70; TEMP 97.5
[2018-11-17] MEDS: HumaLOG 300 UNITS/3 ML VIAL SC PRN (12:07)
== END 2018-11-17 15:20 | disposition hospice, home (50) | DRG 309 ==
LOC: SCSER 10:57 → OBSVTOIN 15:04 → 2SW 15:04 → 2NO 11-15 16:16
PROVIDERS: ADMIT Internal Medicine; ATTEND Internal Medicine
DX: I48.0 Paroxysmal atrial fibrillation (principal); N39.0 Urinary tract infection, site not specified; N17.9 Acute kidney failure, unspecified; I10 Essential (primary) hypertension; Z51.5 Encounter for palliative care; E78.5 Hyperlipidemia, unspecified; F03.90 Unspecified dementia, unspecified severity, without behavioral disturbance, psychotic disturbance, mood disturbance, and anxiety; E11.40 Type 2 diabetes mellitus with diabetic neuropathy, unspecified; E86.0 Dehydration; R29.6 Repeated falls; R35.0 Frequency of micturition; E87.6 Hypokalemia; I49.5 Sick sinus syndrome; E83.42 Hypomagnesemia; Z95.0 Presence of cardiac pacemaker; Z79.84 Long term (current) use of oral hypoglycemic drugs; Z90.710 Acquired absence of both cervix and uterus; Z88.0 Allergy status to penicillin; Z91.14 Patient's other noncompliance with medication regimen
CPT/HCPCS: 36415; 36416; 71045; 78452; 80048; 80053; 80061; 81001; 82550; 82553; 83036; 83690; 83735; 83880; 84484; 85025; 93005; 93017; 94760; 96360; 96361; A9500; J0153; J0360; J0696; J1650; J1815; J3475; J3480; J3490; J7050